=== PATIENT | female | born 1950 | race Caucasian/White ===

== ENCOUNTER 2017-06-27 08:00 | Observation (INO) | payer OTHER ==
--- NOTE | 2017-06-23 16:43 | GHP ---
[f rep st] PREOP HISTORY AND PHYSICAL DATE OF ADMISSION: 06/28/2017 CHIEF COMPLAINT: Ventral hernia. HISTORY OF PRESENT ILLNESS: Patient is a 66-year-old woman who had an umbilical hernia for 15 years . In October 2016, she had choledocholithiasis and had an ERCP and cholecystectomy. She became dist ended and had a liver abscess that required drainage. She reports that she had skin changes by her umbilicus and howard fluid was expressed. She had increasing discomfort and feels that a hernia has enlarged. She has lost 45 pounds over the past year. She has no nausea, vomiting, changes in bowel habits, fevers, chills or other symptoms of infection. She had a CT scan performed on 04/21/2017 which shows a large fat containing midline umbilical herni a. The hernia sac measures 8 x 10 x 7 centimeters. The neck of the hernia is 5 cm. PAST MEDICAL HISTORY: Atrophic vaginitis, gout, hyperlipidemia, hypertension, hypothyroidism, liche n sclerosis, lymphedema, obesity, prediabetes, rosacea, vitamin D deficiency, history of vulvar squa mous carcinoma. PAST SURGICAL HISTORY: Left breast biopsy, section, cholecystectomy, drainage of liver abs cess, right foot surgery, tonsillectomy, wide local excision of vulvar lesion, vulvectomy. ALLERGIES: Codeine, simvastatin. FAMILY HISTORY: History of breast cancer in paternal grandmother, COPD in father and paternal grand father; type 2 diabetes in father; gout and hypertension in mother and maternal grandmother with acu te [place]. SOCIAL HISTORY: She exercises regularly. She is . She denies tobacco, alcohol or recreatio nal drug use. REVIEW OF SYSTEMS: 10-point review of systems negative aside from HPI. PHYSICAL EXAMINATION: GENERAL: Well developed, obese woman, in no acute distress. HEENT: Normoce phalic, atraumatic. No hearing deficits. Pupils equal and round. No scleral icterus. Mucous memb ranes moist. NECK: Trachea midline. RESPIRATORY: Clear to auscultation bilaterally. No increased wo rk of breathing. CARDIOVASCULAR: Regular rate and rhythm. No peripheral edema. ABDOMEN: Bowel so unds present. Soft, nondistended, nontender. Large ventral hernia inferior to the umbilicus. Ther e is some overlying skin discoloration, non reducible. SKIN: Warm and dry. PSYCH: Mood and affect normal. NEURO: Grossly intact. IMPRESSION AND PLAN: 66-year-old woman with incarcerated umbilical hernia. We discussed surgical r epair of the umbilical hernia with mesh. She does not want a permanent mesh and therefore we discus sed Phasix which will reabsorb. We also discussed a laparoscopic component release. We recommend a n open umbilical hernia repair. We discussed risks of surgery including, but not limited to, heart attack, stroke, blood clots or . We discussed risk of infection, bleeding, damage to surroundi ng structures, recurrence. She understands the risks and would like to proceed. We anticipate this to be an outpatient procedure. She was additionally seen by Dr. Doreen Mendosa who agrees with the above impression and plan. /[id number]/MODL
[2017-06-28] MEDS ORDERED: LR 1,000 ML IV ONE (06:26)
[2017-06-28] MEDS ORDERED: LIDOCAINE 1% 2 ML INJ ID PRN (06:26)
[2017-06-28] MEDS ORDERED: BUPIVACAINE 0.5% 30 ML SDV ONE (07:03)
[2017-06-28] MEDS ORDERED: MIDAZOLAM 2 MG/2 ML VIAL IVP ONE (07:10)
[2017-06-28] MEDS ORDERED: ceFAZolin 3 GM in D5W 100 ML IV ONE (07:14)
[2017-06-28] MEDS ORDERED: SCOPOLAMINE HYDROBROMIDE 1.5 MG PATCH TD SCH (07:15)
--- NOTE | 2017-06-28 07:16 | PDANEPAE ---
ANE History of Present Illness Ventral Hernia ANE Past Medical History - Cardiovascular History Hx Hypertension: No Hx Arrhythmias: No Hx Chest Pain: No Hx Coronary Artery / Peripheral Vascular Disease: No Hx CHF / Valvular Disease: No Hx Palpitations: No - Pulmonary History Hx COPD: No Hx Asthma/Reactive Airway Disease: No Hx Recent Upper Respiratory Infection: No Hx Oxygen in Use at Home: No Hx Sleep Apnea: No Sleep Apnea Screening Result - Last Documented: Negative - Neurologic History Hx Cerebrovascular Accident: No Hx Seizures: No Hx Dementia: No - Endocrine History Hx Diabetes: No Hypothyroid: Yes Obesity: moderate Endocrine History Comment: hypothyroidism - Renal History Hx Renal Disorders: Yes Renal History Comment: frequency - Liver History Hx Hepatic Disorders: No - Neurological & Psychiatric Hx Hx Neurological and Psychiatric Disorders: No - Cancer History Hx Cancer: Yes 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 emergent radha 10/2016. left partial vulvectomy. ANE Review of Systems - Exercise capacity METS (RN): 4 METS ANE Patient History - Allergies Allergies/Adverse Reactions: codeine Allergy (Verified 05/29/17 15:00) Vomiting - Home Medications Home Medications: Allopurinol [Allopurinol 100 MG (*)] 200 mg PO DAILY 05/24/17 [Last Taken 1 Day Ago] Herbals/Supplements -Info Only 1 ea PO DAILY 05/24/17 [Last Taken 06/21/17] Ibuprofen [Motrin (*)] 200 mg PO DAILY PRN 05/24/17 [Last Taken 06/21/17] Levothyroxine [Synthroid 88 mcg (*)] 88 mcg PO DAILY06 05/24/17 [Last Taken 03:00] metroNIDAZOLE 0.75 % [Metrogel 0.75% Topical Gel (RX)] 1 piotr TP DAILY 05/24/17 [ Last Taken 06/28/17 03:00] - NPO status NPO Since - Liquids (Date): 06/28/17 NPO Since - Liquids (Time): 03:00 NPO Since - Solids (Date): 06/27/17 NPO Since - Solids (Time): 23:00 - Anes Hx Anes Hx: no prior problems - Smoking Hx Smoking Status: Never smoked Marijuana use: No - Alcohol Use Alcohol Use: None - Family Anes Hx Family Anes Hx: none Family Hx Anesthesia Complications: none ANE Labs/Vital Signs - Vital Signs Blood Pressure: 129/91 Heart Rate: 76 Respiratory Rate: 16 O2 Sat (%): 96 Height: 156.85 cm Weight: 86.636 kg ANE Physical Exam - Airway Neck exam: FROM Mallampati Score: Class 2 Mouth exam: normal dental/mouth exam - Pulmonary Pulmonary: no respiratory distress - Cardiovascular Cardiovascular: regular rate and rhythym, no murmur, rub, or gallop - ASA Status ASA Status: III ANE Anesthesia Plan Anesthesia Plan: general endotracheal anesthesia
[2017-06-28] MEDS ORDERED: MIDAZOLAM 2 MG/2 ML VIAL ONE (07:19)
[2017-06-28] MEDS ORDERED: SCOPOLAMINE HYDROBROMIDE 1.5 MG PATCH TD ONE (07:19)
[2017-06-28] MEDS ORDERED: CEFAZOLIN 2 GM/DEXTROSE/100 ML BAG IV ONE (07:25)
[2017-06-28] MEDS ORDERED: PROPOFOL/EMULSION 500 MG/50 ML BOTTLE IV ONE ×2 (07:28)
[2017-06-28] MEDS ORDERED: fentaNYL 100 MCG/2 ML INJ ONE ×4 (07:28→11:06)
[2017-06-28] MEDS ORDERED: PHENYLEPHRINE HCL 100 MCG/ML SYR ONE (07:29)
[2017-06-28] MEDS ORDERED: DEXAMETHASONE 4 MG/ML VIAL ONE ×2 (07:29)
[2017-06-28] MEDS ORDERED: LIDOCAINE 2% 5 ML SDV ONE (07:29)
[2017-06-28] MEDS ORDERED: ROCURONIUM 100 MG/10 ML VIAL ONE (07:29)
[2017-06-28] MEDS ORDERED: ONDANSETRON 4 MG/2 ML VIAL ONE ×2 (07:29→11:14)
[2017-06-28] MEDS ORDERED: GLYCOPYRROLATE 0.2 MG/1 ML VIAL ONE (07:29)
[2017-06-28] MEDS ORDERED: ceFAZolin 2 GM/DEXTROSE 100 ML IV ONE (07:30)
[2017-06-28] MEDS ORDERED: HYDROmorphONE/DILAUDID 2 MG/ML INJ ONE (09:10)
[2017-06-28] MEDS ORDERED: SUGAMMADEX SODIUM 200 MG/2 ML VIAL IVP ONE (10:10)
[2017-06-28] MEDS ORDERED: PROMETHAZINE HCL 25 MG/ML INJ IVP PRN (10:53)
[2017-06-28] MEDS ORDERED: ONDANSETRON 4 MG/2 ML VIAL IVP PRN ×2 (10:53→10:58)
[2017-06-28] MEDS ORDERED: NALOXONE HCL 0.4 MG/ML INJ IVP PRN ×2 (10:53→10:55)
[2017-06-28] MEDS ORDERED: HYDROmorphONE/DILAUDID 1 MG/ML SYR IVP PRN (10:55)
--- NOTE | 2017-06-28 10:56 | POSTOPPROG ---
Post Op Note Date of Operation: 06/28/17 Surgeon: Doreen Mendosa [employer]: dori Anesthesiologist: tk Anesthesia: GET(General Endotracheal) Pre-op Diagnosis: incarcerated ventral hernia Post-op Diagnosis: same Indication: 66 yo with incarcerated ventral hernia Procedure: lap component separation and open ventral hernia repair with mesh Findings: most omentum subq Inf/Abcess present in the surg proc area at time of surgery?: No EBL: 100-500 Drains: Jimbo Diggs Specimen(s): hernia sac
[2017-06-28] MEDS ORDERED: BISACODYL 10 MG SUPP PR PRN (10:58)
[2017-06-28] MEDS ORDERED: MAGNESIUM HYDROXIDE 30 ML UDCUP PO PRN (10:58)
[2017-06-28] MEDS ORDERED: ACETAMINOPHEN 325 MG TAB PO PRN (10:58)
[2017-06-28] MEDS ORDERED: LACTULOSE 20 GM/30 ML UDCUP PO PRN (10:58)
[2017-06-28] MEDS ORDERED: POLYETHYLENE GLYCOL 3350 17 GM PKT PO PRN (10:58)
[2017-06-28] MEDS ORDERED: D5W 1/2 NS W/ 20 KCl/L 1,000 ML IV SCH (11:00)
[2017-06-28] MEDS ORDERED: HYDROmorphONE/DILAUDID 1 MG/ML SYR ONE (11:06)
[2017-06-28] MEDS: fentaNYL 100 MCG/2 ML INJ IVP PRN ×2 (11:11→11:16)
[2017-06-28] MEDS: HYDROmorphONE/DILAUDID 1 MG/ML SYR IVP PRN ×3 (13:27→17:56)
[2017-06-28] MEDS: SENNOSIDES/DOCUSATE SODIUM TAB PO SCH (20:52)
[2017-06-29] MEDS: HYDROmorphONE/DILAUDID 2 MG TAB PO PRN ×2 (00:23→04:12)
[2017-06-29 04:17] VITALS: TEMP 98.7
[2017-06-29 05:30] LABS: % IMMATURE GRANULYOCYTES 0.5 % (0.0-1.1); ABSOLUTE IMMATURE GRANULOCYTES 0.06 10^3/uL (0.00-0.10); ADD DIFF? NO; ADD MORPH? NO; ADD SCAN? NO; ATYPICAL LYMPHOCYTE FLAG 0 (0-99); FRAGMENT RBC FLAG 0 (0-99); HEMATOCRIT 33.3 % (38.0-47.0); HEMOGLOBIN 11.5 g/dL (12.6-16.3); LEFT SHIFT FLG 0 (0-99); LIPEMIA HEMOLYSIS FLAG 90 (0-99); MEAN CELL HEMOGLOBIN 32.8 pg (27.9-34.1); MEAN CELL HEMOGLOBIN CONCENTR. 34.5 g/dL (32.4-36.7); MEAN CELL VOLUME 94.9 fL (81.5-99.8); MEAN PLATELET VOLUME 10.6 fL (8.7-11.7); PLATELET CLUMPS FLAG 0 (0-99); PLATELET COUNT 217 10^3/uL (150-400); RED BLOOD CELL COUNT 3.51 10^6/uL (4.18-5.33); RED CELL DISTRIBUTION WIDTH 12.1 % (11.5-15.2)
[2017-06-29 05:43] LABS: ALANINE AMINOTRANSFERASE 41 IU/L (9-52); ALBUMIN 3.1 g/dL (3.5-5.0); ALKALINE PHOSPHATASE 53 IU/L (38-126); ANION GAP 7 mEq/L (8-16); ASPARTATE AMINOTRANSFERASE 27 IU/L (14-46); BILIRUBIN,TOTAL 0.9 mg/dL (0.1-1.4); CARBON DIOXIDE 26 mEq/l (22-31); CHLORIDE 97 mEq/L (97-110); CREATININE 0.6 mg/dL (0.6-1.0); GLOMERULAR FILTRATION RATE > 60; GLUCOSE 107 mg/dL (70-100); POTASSIUM 4.3 mEq/L (3.5-5.2); SODIUM 130 mEq/L (134-144); TOTAL PROTEIN 5.7 g/dL (6.3-8.2)
[2017-06-29] MEDS ORDERED: LEVOTHYROXINE 88 MCG TAB PO SCH (06:00)
[2017-06-29] MEDS: SENNOSIDES/DOCUSATE SODIUM TAB PO SCH (07:51)
[2017-06-29 08:13] VITALS: BP 122/74; PULSE 90; RESP 18; O2SAT 90
[2017-06-29] MEDS ORDERED: HYDROmorphONE/DILAUDID 2 MG TAB PO PRN (08:27)
[2017-06-29] MEDS ORDERED: ALLOPURINOL 100 MG TAB PO SCH (09:00)
[2017-06-29] MEDS ORDERED: METRONIDAZOLE 0.75 % 45 GEL TP SCH (09:00)
--- NOTE | 2017-06-29 09:03 | SOAPPROG ---
SOAP Progress Note Assessment/Plan: Assessment: POD # 1 s/p lap component release and open ventral hernia repair with mesh Doing well Dilaudid Check and record ROMAN daily No heavy lifting pushing or pulling greater than 15 lbs for 6 week F/U with Dr Mendosa in 1 week D/C home if tolerates breakfast, ambulates independently and understands ROMAN care S: Feeling much improved. O: INcision cdi. ROMAN with serosanguinous output CTAB RRR Sitting in chair, appears well Plan: 06/29/17 09:00 Objective: Vital Signs Temp Pulse Resp BP Pulse Ox 37.1 C 90 18 122/74 H 90 L 06/29/17 08:11 06/29/17 08:11 06/29/17 08:11 06/29/17 08:11 06/29/17 08:11 Laboratory Results 06/29/17 05:02 06/29/17 05:02 06/28/17 06/29/17 06/30/17 05:59 05:59 05:59 Intake Total 2357 400 Output Total 1080 230 Balance 1277 170 ICD10 Worksheet Patient Problems: Problems Problem Status Onset Incarcerated ventral hernia Acute - ICD10 Problem Qualifiers (1) Incarcerated ventral hernia
--- NOTE | 2017-06-29 11:00 | POSTANESTH ---
Post Anesthetic Evaluation Cardiovascular Status: Normal, Stable Respiratory Status: Normal, Stable Level of Consciousness/Mental Status: Can Participate in Eval Pain Control: Adequate, Prn Tx Ordered Nausea/Vomiting Control: Adequate, Prn Tx Ordered Complications Possibly Related to Anesthesia: None Noted
--- NOTE | 2017-07-05 11:52 | GOP ---
[f rep st] OPERATIVE REPORT DATE OF OPERATION: 06/28/2017 SURGEON: Doreen Mendosa MD [employer] ENGINEER: Dr. Brandan Leblanc, who was requested by myself for technical expertise and timely completion of the case. ANESTHESIA: General. ANESTHESIOLOGIST: Dr. Marta Rea. PREOPERATIVE DIAGNOSIS: Incarcerated ventral hernia. POSTOPERATIVE DIAGNOSIS: Incarcerated ventral hernia. PROCEDURE PERFORMED: 1. Laparoscopic component separation with musculofascial flaps, 37181. 2. Open ventral hernia repair with implantation of mesh. FINDINGS: Incarcerated omentum. SPECIMENS: Hernia sac. ESTIMATED BLOOD LOSS: 250 cc. INDICATIONS: The patient is a 66-year-old woman who had a laparoscopic cholecystectomy with complication. She developed a hernia and had incarcerated omentum. This is unclear if this was a new ventral hernia or as a result of her laparoscopic cholecystectomy. DESCRIPTION OF PROCEDURE: The patient was brought into the operating room, placed supine on the table, and general anesthesia was administered. Her abdomen was prepped and draped in the usual sterile fashion. I started on the right side, at approximately the 10th rib space in the midclavicular line. I infiltrated this area with 0.5% Marcaine. I dissected down through the subcutaneous tissues until I encountered the anterior rectus sheath. I tried to divide this from the posterior rectus sheath and thought I had developed a plane. I inserted the balloon tip trocar, directed toward the inguinal ligament. However, this was intra-abdominal. I tried to separate out these muscle layers and was having difficulty. I then moved over to the left side and identified a similar area. On the left side, the space was very easy to identify. I inserted the balloon-tip trocar, directed toward the inguinal ligament. The balloon was insufflated with the camera in place. Once I could see that the anterior muscle was above me and the posterior below, I then exchanged this for the working balloon. Insufflation to a pressure of 12 mm Hg. I inserted a 5 mm trocar laterally. I used electrocautery to dissect the anterior muscle sheath to create a musculofascial flap on the left side. Hemostasis was achieved with electrocautery. I also used electrocautery to divide Shira's. Once I divided the tissue to the working trocar, I removed the balloon and I used my finger to grasp the remaining fibers of the muscle, and I divided this with electrocautery. Reese was placed in the cavity, and ROMAN drain was placed, exiting laterally. This was sutured into place with 3-0 Vicryl. Due to the hernia defect with excess skin, I then proceeded to repair the hernia in an open fashion. I made a midline incision and created medial and lateral skin flaps. I immediately encountered the hernia sac. I performed careful and tedious dissection to dissect the hernia sac around the subcutaneous tissue. There was a large amount of incarcerated omentum. I continued to dissect until I could find the actual fascial breach, which was approximately 5 cm. The omentum was reduced into the abdomen. I then placed a piece of Parietex 10 x 15 cm mesh. This was placed intraperitoneal and sutured into place with 2-0 PDS. Next, I closed the fascia with 0 PDS. I created a neoumbilicus with 2-0 Vicryl. I excised a large amount of skin that was very thinned. I continued my closure with 3-0 Vicryl, followed by 4-0 Monocryl. Mastisol, Steri-Strips, and a dressing were applied. She was awakened in the operating room, extubated, transferred to PACU in stable condition. /[id number]/MODL MTDD
== END 2017-06-29 12:01 | disposition home or self-care (01) ==
LOC: F3E 06-28 05:43
PROVIDERS: ADMIT Surgery; ATTEND Surgery
PROC: 0JX Subcutaneous Tissue and Fascia, Transfer (ICD-10-PCS; principal; 2017-06-28 07:30)
PROC: 0WUF0JZ Supplement Abdominal Wall with Synthetic Substitute, Open Approach (ICD-10-PCS; principal; 2017-06-28 07:30)
DX: K43.9 Ventral hernia without obstruction or gangrene (principal); E03.9 Hypothyroidism, unspecified; M10.9 Gout, unspecified; I10 Essential (primary) hypertension; E78.5 Hyperlipidemia, unspecified; E66.9 Obesity, unspecified; Z68.35 Body mass index [BMI] 35.0-35.9, adult; E55.9 Vitamin D deficiency, unspecified; Z85.44 Personal history of malignant neoplasm of other female genital organs
CPT/HCPCS: 49329; 49561; 49568; 88302; C1727; C1781; J0690; J1100; J1170; J2250; J2370; J2405; J2704; J3010

== ENCOUNTER → 2018-05-11 | Outpatient (CLI) | payer OTHER | LOC: FIMAGING 11:58 | PROVIDERS: ATTEND Family Medicine | DX: Z12.31 Encounter for screening mammogram for malignant neoplasm of breast (principal); Z80.3 Family history of malignant neoplasm of breast ==

== ENCOUNTER → 2019-04-11 | Outpatient (CLI) | payer OTHER | LOC: BMCIMAGING 11:03 ==